=== PATIENT | female | born 1965 | race Caucasian/White ===

== ENCOUNTER 2018-08-14 08:10 | Emergency (ER) | payer OTHER ==
[~2018-08-14] VITALS: Ht 167.6 cm; Wt 72.6 kg
[2018-08-14 09:02] LABS: BASOPHILS % (AUTO) 0.8 % (0.0-2.0); EOSINOPHILS # (AUTO) 0.2 K/uL (0.0-0.7); EOSINOPHILS % (AUTO) 3.3 % (0.0-7.0); HEMATOCRIT 37.8 % (31.2-41.9); HEMOGLOBIN 12.9 g/dL (10.9-14.3); LYMPHOCYTES # (AUTO) 1.9 K/uL (20.0-40.0); LYMPHOCYTES % (AUTO) 32.7 % (20.5-51.5); MEAN CORPUSCULAR HGB CONC 34 g/dL (32.3-35.6); MEAN CORPUSCULAR VOLUME 87.8 fL (75.5-95.3); MONOCYTES # (AUTO) 0.5 K/uL (2.0-10.0); MONOCYTES % (AUTO) 9.2 % (0.0-11.0); NEUTROPHILS # (AUTO) 3.2 K/uL (1.8-8.9); PLATELET COUNT (AUTO) 240 K/uL (179-408); RED BLOOD CELL COUNT(AUTO) 4.31 MIL/uL (3.63-4.92); WHITE BLOOD COUNT (AUTO) 5.9 K/uL (3.8-11.8)
[2018-08-14 09:11] LABS: CREATININE 0.6 mg/dL (0.6-1.3); POTASSIUM 3.7 mmol/L (3.5-5.1)
[2018-08-14 09:13] LABS: *BILIRUBIN,URIN NEGATIVE (NEGATIVE); *BLOOD, URINE 2+ (NEGATIVE); *CLARITY,URINE CLEAR (CLEAR); *COLOR,URINE YELLOW (YELLOW); *KETONES,URINE NEGATIVE (NEGATIVE); *PROTEIN,URINE NEGATIVE (NEGATIVE); *UROBILINOGEN,URINE 0.2 E.U./dl (NORMAL); LEUKOCYTE ESTERASE ,URINE NEGATIVE (NEGATIVE); NITRITE, URINE NEGATIVE (NEGATIVE); UGLUCOSE NEGATIVE (NEGATIVE)
[2018-08-14 09:24] LABS: BACTERIA,URINE NONE SEEN /HPF (NONE SEEN); WBC,URINE 0-3 /HPF (0-3)
[2018-08-14 09:25] LABS: SQUAMOUS EPITHELIAL CELL,UR FEW /HPF (NONE SEEN)
[2018-08-14 09:28] LABS: *URINE HCG, QUAL NEGATIVE (NEGATIVE)
[2018-08-14 09:29] LABS: BILIRUBIN,DIRECT 0.2 mg/dL (0.0-0.2); BILIRUBIN,TOTAL 0.9 mg/dL (0.2-1.0); TOTAL PROTEIN, SERUM 7.2 g/dL (6.4-8.2)
[2018-08-14 11:21] VITALS: BP 119/77
== END 2018-08-14 11:44 | disposition home or self-care (01) ==
LOC: ER 08:10
DX: R10.13 Epigastric pain (principal); R10.31 Right lower quadrant pain; R10.32 Left lower quadrant pain; R31.9 Hematuria, unspecified; E78.00 Pure hypercholesterolemia, unspecified
CPT/HCPCS: 36415; 70030-TC; 71045; 83605; 83690; 84703; 85025; 85730; 87040; 87086; A4663